=== PATIENT | female | born 1950 | race Caucasian/White ===

== ENCOUNTER → 2025-01-26 07:32 | Outpatient (CLI) | payer MEDICARE, SELFPAY ==
--- NOTE | 2025-01-26 07:37 | DI.NM.S_ITS ---
PROCEDURE: NM HANNAH PERF SPECT REST & STR Rest and exercise myocardial perfusion SPECT with gated imaging and ejection fraction RADIOPHARMACEUTICAL: 12.7 mCi Tc-99m sestamibi IV at rest and 25.6 mCi Tc-99m sestamibi IV at peak exercise. A 0-gdn-ozaxnsvu was performed. INDICATIONS: CHEST PAIN TECHNIQUE: Radiopharmaceutical was injected at peak stress test, and also at rest. SPECT images were obtained. SPECT myocardial perfusion images were displayed in short axis, horizontal long axis, and vertical long axis views. Gated images were reviewed using dMetrics software. COMPARISON: None. CARDIAC STRESS: A standard Bud treadmill exercise tolerance test was performed by the patient under the supervision of an attending staff. The patient exercised for 3 minutes and 0 seconds. The test was then switched to a modified Bud protocol due to inability to keep up with the treadmill. 4.1 METS, functional aerobic impairment (HIRAM) is +26%. Hemodynamic data: There is normal blood pressure and heart rate response to exercise stress. Patient achieved 91% of maximum predicted heart rate at peak exercise. Symptoms: Patient denied chest pain during exercise but did exhibit moderate shortness of breath. EKG: No diagnostic EKG changes of ischemia; no ectopy. FINDINGS: Raw data: There is good myocardial labeling by radiotracer. No significant motion artifacts. Jxop-qs-akkgu ratio is 0.25 (normal is less than 0.38 for sestamibi tracer, and less than 0.50 for thallium tracer). Left ventricle function: Gated images demonstrate normal left ventricle wall thickening. No segmental wall motion abnormality. No transient ischemic dilation; TID is 0.82 (normal less than 1.3). The left ventricle resting end-diastolic volume is 79 mL. Left ventricle stress ejection fraction is >75%; normal values are above 45%. Myocardial perfusion: There is normal distribution of activity in the left and right ventricular myocardium. No fixed or reversible perfusion defects. IMPRESSION: Low risk study for ischemia. No evidence of exercise-induced ischemia on ECG or SPECT imaging. Normal LV size with hyperdynamic function. Normal hemodynamic response. Reduced exercise capacity. Dictated by: Janee Carrillo D.O. on 01/26/2025 at 16:01 Approved by: Janee Carrillo D.O. on 01/26/2025 at 16:06
--- NOTE | 2025-01-26 07:37 | DI.ECHO.S_ITS ---
[facility] : : [id number] : : [place] : : [id number] : : Phone: [phone] Echocardiogram Report + + :Name: ILSA CHANDRA Study Date: 01/26/2025 Height: 62 in : :[facility] ReadingLocation: Weight: 173 lb : : Gender: Female BSA: 1.8 m2 : :: 1950 Age: 74 yrs BP: 164/87 mmHg: :Reason For Study: CHEST PAIN : :Ordering Physician: JESU, : :JANEE Lowe Performed By: Vanessa Mac : :Referring: JANEE CARRILLO : + + Interpretation Summary The ejection fraction is estimated to be 65-70%. Grade II diastolic dysfunction. The left atrium is moderately dilated. The right ventricle is normal in size and function. There is mild mitral regurgitation. There is mild mitral stenosis. There is mild tricuspid regurgitation. The right ventricular systolic pressure is estimated to be at least 33 mmHg based on an estimated right atrial pressure of 3 mm Hg. There is a trace pericardial effusion. Procedure: A two-dimensional transthoracic echocardiogram with color flow and Doppler was performed. The study quality was technically adequate. There is no prior echocardiogram noted for this patient. The patient was in sinus rhythm with heart rates between 62-81 bpm during the exam. Left Ventricle: The left ventricle is normal in size and wall thickness. The ejection fraction is estimated to be 65-70%. Diastolic parameters suggest a pseudonormalization pattern, consistent with probable elevated filling pressures. Right Ventricle: The right ventricle is normal in size and function. Atria: The left atrium is moderately dilated. Right atrial size is normal. There is no Doppler evidence for an interatrial shunt. Mitral Valve: There is mild to moderate mitral annular calcification. The mitral valve leaflets are mildly calcified. The mitral valve mean gradient is 4.5 mmHg. The mitral valve pressure half-time is 96 ms. There is mild mitral stenosis. There is mild mitral regurgitation. Aortic Valve: The aortic valve is trileaflet. The aortic valve is mildly calcified. There is mild aortic valve sclerosis. There is no hemodynamically significant valvular aortic stenosis. No aortic regurgitation is present. Tricuspid Valve: The tricuspid valve leaflets are thin and pliable. There is mild tricuspid regurgitation. The right ventricular systolic pressure is estimated to be at least 33 mmHg based on an estimated right atrial pressure of 3 mm Hg. Pulmonic Valve: The pulmonic valve leaflets are thin and pliable; valve motion is normal. There is trace pulmonic regurgitation. Great Vessels: The aortic root is normal size. The dimensions of the ascending aorta are normal. The IVC is of normal diameter and collapses greater than 50% with a sniff. This suggests a low right atrial pressure of 3 mm Hg. Pericardium/ Pleura There is an anterior echo-free space consistent with a fat pad. There is a trivial pericardial effusion noted. There is no pleural effusion. MMode/2D Measurements & Calculations LVIDd: 5.8 cm LVOT diam: 2.0 cm LVIDs: 3.7 cm Ao root diam: 2.8 cm FS: 35.5 % asc Aorta Diam: 3.3 cm IVSd: 0.83 cm Ao Arch Diam (Prox Trans): 2.9 cm LVPWd: 0.82 cm LV hoff. diameter/BSA (cm/m^2): 3.2 LV sys. diameter/BSA (cm/m^2): 2.1 LA A2 area: 22.5 cm2 RA long axis: 5.2 cm LA A4 area: 23.8 cm2 RA area: 15.4 cm2 LA length (vol): 6.0 cm RA vol: 38.8 ml LA vol: 75.1 ml RA : 21.6 ml/m2 LA vol index: 41.8 ml/m2 IVC diam: 1.8 cm RVDd major: 6.9 cm RVD1 (basal): 3.0 cm RVD2 (mid): 2.6 cm TAPSE: 2.0 cm Doppler Measurements & Calculations Ao V2 max: 190.1 cm/sec LVOT Max Mikel: 107.3 cm/sec Ao V2 mean: 132.0 cm/sec LV V1 max P.6 mmHg Ao max P.5 mmHg LV V1 VTI: 26.0 cm Ao mean P.8 mmHg GET(I,D): 1.8 cm2 Ao V2 VTI: 43.4 cm GET(V,D): 1.7 cm2 sev ratio: 0.60 GET indexed to BSA (cm^2/m^2): 1.0 MV E max mikel: 121.4 cm/sec TR max mikel: 271.6 cm/sec MV A max mikel: 121.4 cm/sec TR max P.5 mmHg MV E/A: 1.0 PA V2 max: 106.7 cm/sec Med Peak E' Mikel: 4.9 cm/sec PA V2 mean: 75.6 cm/sec E/E' med: 24.6 PA mean P.5 mmHg Lat Peak E' Mikel: 7.4 cm/sec PA pr(Accel): 35.3 mmHg E/E' lat: 16.5 E/e' average: 20.5 MV dec time: 0.18 sec MVA(VTI): 2.1 cm2 MV V2 mean: 102.5 cm/sec SV(LVOT): 78.4 ml MV mean P.5 mmHg MV V2 VTI: 37.9 cm MV P1/2t-pr_phl: 95.5 msec Reading Physician:12:55 PM
== END ==
LOC: ECHO 07:35
PROVIDERS: PCP Family Medicine; Referring Provider Internal Medicine Cardiovascular Disease; Visit Provider Internal Medicine Cardiovascular Disease
DX: I08.3 Combined rheumatic disorders of mitral, aortic and tricuspid valves (principal); R07.9 Chest pain, unspecified
CPT/HCPCS: 78452; 93017; 93306; A9502